=== PATIENT | male | born 1970 | race Hispanic/Latino ===

== ENCOUNTER 2019-10-10 10:34 | Emergency (ER) | payer BC ==
[2019-10-10 11:16] LABS: BASOPHILS % (AUTO) 0.6 % (0.0-5.0); EOSINOPHILS % (AUTO) 3.1 % (0.0-8.0); LYMPHOCYTES % (AUTO) 25.9 % (21.0-51.0); MEAN CORPUSCULAR HEMOGLOBIN 28.1 pg (27.0-33.0); MEAN CORPUSCULAR HGB CONC 33.5 g/dL (32.0-36.0); MEAN CORPUSCULAR VOLUME 83.8 fL (79-99); MONOCYTES % (AUTO) 9.7 % (3.0-13.0); NEUTROPHILS % (AUTO) 60.3 % (40.0-77.0); PLATELET COUNT (AUTO) 179 K/uL (130-400); RED BLOOD CELL COUNT(AUTO) 5.49 MIL/uL (4.50-6.20); RED CELL DISTRIBUTION WIDTH 12.4 % (11.0-15.5); WHITE BLOOD COUNT (AUTO) 5.1 K/uL (4.8-10.8)
[2019-10-10 11:20] LABS: ALBUMIN 3.5 g/dL (3.5-5.0); BILIRUBIN,TOTAL 0.3 mg/dL (0.2-1.0); CREATININE 0.7 mg/dL (0.5-1.5); TOTAL PROTEIN, SERUM 7.4 g/dL (6.0-8.3)
[2019-10-10 11:22] LABS: POTASSIUM 2.9 mmol/L (3.5-5.1)
[2019-10-10 11:37] LABS: B-TYPE NATRIURETIC PEPTIDE < 5 pg/mL (0-100)
[2019-10-10 11:44] LABS: INR 0.92 (0.85-1.15); PARTIAL THROMBOPLASTIN TIME 25.7 SEC (26.3-35.5); PROTHROMBIN TIME 9.7 SEC (9.6-11.6)
[2019-10-10] MEDS ORDERED: POTASSIUM BICARB/CIT AC 25 MEQ TABLET.EFF ONE (12:26)
[2019-10-10] MEDS ORDERED: MAGNESIUM 2GM PREMIX 50ML 50 ML IV ONE (12:27)
== END 2019-10-10 14:16 | disposition home or self-care (01) ==
LOC: EDH 10:34
DX: R06.00 Dyspnea, unspecified (principal); E87.6 Hypokalemia; R06.02 Shortness of breath; E11.9 Type 2 diabetes mellitus without complications; E78.00 Pure hypercholesterolemia, unspecified; Z90.49 Acquired absence of other specified parts of digestive tract
CPT/HCPCS: 36415; 71045; 80053; 82550; 83880; 84484; 85025; 85610; 85730; 93005; 96365; 96366; 99285; J3475

== ENCOUNTER 2024-01-25 08:23 | Day surgery (SDC) | payer OTHER ==
[~2024-01-25] VITALS: Ht 177.8 cm; Wt 78.0 kg
[2024-01-25] VITALS (11 sets, daily range): BP systolic 115–132; BP diastolic 65–78; PULSE 75–103; RESP 14–18
[~2024-01-25 08:23] MED LIST: ALBUHFA IH; CYAN1TAB44 PO; DICY20TA2 PO; ESOM40CA54 PO; FAMO40TA7 PO; FOLI1 PO; INSU100V12 SQ; MAG-156 PO; MONT-46 PO; OLME-11 PO; SIME180C35 PO; TIOT18CA3 IH
[2024-01-25] MEDS: 0.9%NACL 1000ML 1,000 ML IV ONE (10:42)
[2024-01-25] MEDS ORDERED: PROPOFOL 10 MG/ML 20ML VIAL IV ONE ×2 (11:11→11:16)
== END 2024-01-25 12:45 | disposition home or self-care (01) ==
LOC: DAH 08:23 → ENDO 08:23 → EDSTATUS 01-29 10:00
PROVIDERS: ATTEND Internal Medicine Gastroenterology
DX: R93.2 Abnormal findings on diagnostic imaging of liver and biliary tract (principal); K29.50 Unspecified chronic gastritis without bleeding; K31.89 Other diseases of stomach and duodenum; K83.8 Other specified diseases of biliary tract; K21.00 Gastro-esophageal reflux disease with esophagitis, without bleeding; R10.10 Upper abdominal pain, unspecified; R14.0 Abdominal distension (gaseous); E11.9 Type 2 diabetes mellitus without complications; I10 Essential (primary) hypertension; K57.30 Diverticulosis of large intestine without perforation or abscess without bleeding; J45.909 Unspecified asthma, uncomplicated; Z86.010 Personal history of colon polyps; Z82.49 Family history of ischemic heart disease and other diseases of the circulatory system; Z83.3 Family history of diabetes mellitus; Z91.040 Latex allergy status; Z79.51 Long term (current) use of inhaled steroids; Z79.4 Long term (current) use of insulin; Z91.018 Allergy to other foods; Z90.49 Acquired absence of other specified parts of digestive tract
CPT/HCPCS: 82948 ×2; 43239; 43259; J7030 ×2; J2704 ×2; A4620; A4215 ×2; A4223; A4222; A4221; A4663; A4606; J3490

== ENCOUNTER 2024-02-08 09:37 | Day surgery (SDC) | payer OTHER ==
[2024-02-08] VITALS (14 sets, daily range): BP systolic 113–147; BP diastolic 70–81; PULSE 61–82; RESP 12–18
[~2024-02-08] VITALS: Ht 177.8 cm; Wt 79.4 kg
[~2024-02-08 09:37] MED LIST changes: -ESOM40CA54 PO; +ESOM40CA66 PO; -FAMO40TA7 PO; +INDOMETHACIN 100 MG SUPP.RECT RC ONE; -MAG-156 PO; -OLME-11 PO; +OLME-12 PO; -SIME180C35 PO
[2024-02-08] MEDS: 0.9%NACL 1000ML 1,000 ML IV ONE (10:16)
[2024-02-08] MEDS ORDERED: FENTANYL CITRATE PF 50 MCG/1 ML 2ML VIAL ONE (10:54)
[2024-02-08] MEDS ORDERED: SUCCINYLCHOLINE CHLORIDE 20 MG/ML 10 ML VIAL ONE (10:55)
[2024-02-08] MEDS ORDERED: GLYCOPYRROLATE 0.2 MG/ML 5 ML VIAL ONE (10:55)
[2024-02-08] MEDS ORDERED: PROPOFOL 10 MG/ML 20ML VIAL IV ONE (10:57)
[2024-02-08] MEDS ORDERED: ONDANSETRON 4MG INJ ONE (10:57)
[2024-02-08] MEDS ORDERED: IOHEXOL-350 50ML VIAL IV ONE (11:35)
== END 2024-02-08 13:15 | disposition home or self-care (01) ==
LOC: ENDO 09:37 → DAH 09:37 → ENDO 13:15
PROVIDERS: ATTEND Internal Medicine Gastroenterology
DX: R93.2 Abnormal findings on diagnostic imaging of liver and biliary tract (principal); K80.50 Calculus of bile duct without cholangitis or cholecystitis without obstruction; R10.11 Right upper quadrant pain; I10 Essential (primary) hypertension; E11.9 Type 2 diabetes mellitus without complications; K21.00 Gastro-esophageal reflux disease with esophagitis, without bleeding; J45.909 Unspecified asthma, uncomplicated; Z90.49 Acquired absence of other specified parts of digestive tract; Z90.89 Acquired absence of other organs
CPT/HCPCS: 43262; 82948 ×2; 74328; 43264; J3010; J0330; J7030 ×2; J2704; J2405; J3490; Q9967; A4215 ×2; A4223; A4657 ×2; A4222; A4221; A4663; A4606; C1769; C1773; 74330

== ENCOUNTER 2024-02-12 10:42 | Emergency (ER) | payer BC, OTHER ==
[~2024-02-12] VITALS: Ht 177.8 cm; Wt 78.5 kg
[~2024-02-12 10:42] MED LIST changes: -INDOMETHACIN 100 MG SUPP.RECT RC ONE
[2024-02-12 11:18] LABS: BASOPHILS # (AUTO) 0.03 K/uL (0.00-0.20); BASOPHILS % (AUTO) 0.5 % (0.0-5.0); EOSINOPHILS # (AUTO) 0.33 K/uL (0.00-0.70); EOSINOPHILS % (AUTO) 5.7 % (0.0-8.0); IMMATURE GRANULOCYTE ABSOLUTE 0.02 K/uL (0-1); LYMPHOCYTES # (AUTO) 1.3 K/uL (1.0-4.8); LYMPHOCYTES % (AUTO) 22.1 % (21.0-51.0); MEAN CORPUSCULAR HEMOGLOBIN 28.3 pg (27.0-33.0); MEAN CORPUSCULAR HGB CONC 32.9 g/dL (32.0-36.0); MEAN CORPUSCULAR VOLUME 85.9 fL (79-99); MONOCYTES # (AUTO) 0.5 K/uL (0.1-1.0); MONOCYTES % (AUTO) 8.4 % (3.0-13.0); NEUTROPHILS # (AUTO) 3.7 K/uL (1.8-7.7); PLATELET COUNT (AUTO) 170 K/uL (130-400); RED BLOOD CELL COUNT(AUTO) 5.59 MIL/uL (4.50-6.20); RED CELL DISTRIBUTION WIDTH 13.2 % (11.0-15.5); WHITE BLOOD COUNT (AUTO) 5.8 K/uL (4.8-10.8)
[2024-02-12 11:26] LABS: CREATININE 0.8 mg/dL (0.5-1.3); POTASSIUM 4.1 mmol/L (3.5-5.1)
[2024-02-12 11:30] LABS: ALBUMIN 3.6 g/dL (3.5-5.0); BILIRUBIN,TOTAL 0.7 mg/dL (0.2-1.0); TOTAL PROTEIN, SERUM 7.9 g/dL (6.0-8.3)
[2024-02-12] MEDS ORDERED: IOHEXOL 350 MG/ML 100ML INFUS..BTL IV ONE (12:42)
[2024-02-12 14:07] LABS: APPEARANCE,URINE CLEAR (CLEAR); BILIRUBIN,URINE NEGATIVE (NEGATIVE); COLOR,URINE COLORLESS (YELLOW); GLUCOSE, URINE (UA) NEGATIVE (NEGATIVE); KETONES,URINE 20 mg/dL (NEGATIVE); LEUKOCYTE ESTERASE ,URINE NEGATIVE Leu/uL (NEGATIVE); NITRATE,URINE NEGATIVE (NEGATIVE); OCCULT BLOOD,URINE NEGATIVE (NEGATIVE); PH,URINE 6.5 (5.0-8.0); PROTEIN,URINE NEGATIVE (NEGATIVE); UROBILINOGEN,URINE 0.2 mg/dL (0.2-1.0)
[2024-02-12 14:15] LABS: ADD UA MICROSCOPIC YES
[2024-02-12 14:16] LABS: RBC,URINE 0-1 /HPF (0-1); SQUAMOUS EPITHELIAL CELL,UR RARE /HPF (0-2)
[2024-02-12] MEDS: ONDANSETRON 4MG INJ IVP ONE (14:44)
[2024-02-12] MEDS: MORPHINE 4 MG SYG IVP ONE (14:44)
[2024-02-12] MEDS: 0.9%NACL 1000ML 1,000 ML IV ONE ×2 (16:18→16:19)
[2024-02-12 18:10] VITALS: BP 122/67; PULSE 72; RESP 20; O2SAT 98
== END 2024-02-12 18:12 | disposition home or self-care (01) ==
LOC: EDH 10:42
DX: R10.9 Unspecified abdominal pain (principal); E11.9 Type 2 diabetes mellitus without complications; I10 Essential (primary) hypertension; E78.00 Pure hypercholesterolemia, unspecified; J45.909 Unspecified asthma, uncomplicated; J44.9 Chronic obstructive pulmonary disease, unspecified; Z90.49 Acquired absence of other specified parts of digestive tract
CPT/HCPCS: 99285; 74177; 96374; 96361; 96375; 80053; 83690; 85025; 81001; 36415; J7030; J2405; J2270; Q9967